=== PATIENT | male | born 1995 | race Two or more races ===

== ENCOUNTER 2017-06-01 18:03 | Emergency (ER) | payer SELFPAY ==
[~2017-06-01] VITALS: Ht 170.2 cm; Wt 65.0 kg
[2017-06-01 22:40] VITALS: BP 141/89
== END 2017-06-01 22:52 | disposition home or self-care (01) ==
LOC: ER 22:14
DX: Z51.89 Encounter for other specified aftercare (principal)
CPT/HCPCS: 99283

== ENCOUNTER 2017-12-26 06:43 | Emergency (ER) | payer MEDICAID, OTHER ==
[~2017-12-26] VITALS: Ht 172.7 cm; Wt 64.0 kg
[2017-12-26] MEDS ORDERED: IBUPROFEN 600MG TABLET PO ONE (10:00)
[2017-12-26 10:33] VITALS: BP 129/88
== END 2017-12-26 10:34 | disposition home or self-care (01) ==
LOC: ER 07:29
DX: S13.8XXA Sprain of joints and ligaments of other parts of neck, initial encounter (principal); F17.200 Nicotine dependence, unspecified, uncomplicated; V43.52XA Car driver injured in collision with other type car in traffic accident, initial encounter; Y93.89 Activity, other specified; Y92.488 Other paved roadways as the place of occurrence of the external cause
CPT/HCPCS: 99283; Z7610

== ENCOUNTER 2018-01-24 12:24 | Emergency (ER) | payer OTHER ==
[~2018-01-24] VITALS: Ht 172.7 cm; Wt 65.0 kg
[2018-01-24] MEDS ORDERED: ACETAMINOPHEN WITH CODEINE 300/30MG TABLET PO ONE (15:15)
[2018-01-24 16:05] VITALS: BP 107/62
== END 2018-01-24 16:46 | disposition home or self-care (01) ==
LOC: ER 13:27
DX: L02.414 Cutaneous abscess of left upper limb (principal); F17.210 Nicotine dependence, cigarettes, uncomplicated
CPT/HCPCS: 10060; 99284; Z7610

== ENCOUNTER 2018-03-14 14:14 | Emergency (ER) | payer OTHER ==
[~2018-03-14] VITALS: Ht 167.6 cm; Wt 66.0 kg
[2018-03-14 14:29] VITALS: BP 125/79
[2018-03-14] MEDS ORDERED: ACETAMINOPHEN 325MG TABLET PO ONE (14:45)
[2018-03-14] MEDS ORDERED: TETANUS, DIPHTHERIA, PERTUSSIS VAC/PF 0.5ML (>7YR OLD) IM ONE (14:45)
== END 2018-03-14 18:31 | disposition left against medical advice (07) ==
LOC: ER 15:02
DX: M79.601 Pain in right arm (principal)
CPT/HCPCS: 99282